=== PATIENT | male | born 1970 | race Caucasian/White ===

== ENCOUNTER 2020-11-11 22:19 | Emergency (ER) | payer BC ==
[~2020-11-11 22:19] MED LIST: Amoxicillin/Clavulanate K 875-125 MG Tab ONE
[2020-11-11] MEDS ORDERED: Diphtheria,Pertussis(Acell),Tetanus Vaccine 0.5 ML SDV IM ONE (22:58)
--- NOTE | 2020-11-12 07:14 | ER ---
HISTORY OF PRESENT ILLNESS: A 50-year-old male here after his dog bit him in the upper lip and just above the upper lip. He states that he usually pets and gives his dog a Lex kiss and while he did this, the dog tonight nipped him in the face. The dog was not provoked and is the patient's own personal dog. There is no concern about rabies. The patient tells me the dog is current on its shots. It is a Basset Hound. The patient states he otherwise is healthy. MEDICATIONS: He is not on any medications. ALLERGIES: HE IS NOT ALLERGIC TO ANY MEDICATIONS. OBJECTIVE: GENERAL APPEARANCE: The patient is awake and alert. No obvious distress. VITAL SIGNS: Reviewed as listed. HEENT: Examining the patient's face reveals 1 vertical laceration, centrally located in the upper lip, which is gaping. It is about 1 cm in length. He has 1 just above the lip that is also about a cm in length that is just through the epidermis. Another small abrasion just above the upper lip and a 2nd laceration on the bottom side of the upper lip on the patient's left side that again would be about another cm in size. DIAGNOSIS: Multiple small lacerations to upper lip area/dog bite. TREATMENT PLAN: Sites were cleansed by nursing staff after which I injected 1% lidocaine with epi locally to anesthetized the lacerations. I then acquired a sterile field and I closed the wound with suturing it using 6-0 Ethilon. It required 3 sutures on the largest 1, 2 on the 1 next to it and 1 to loosely pulled together the laceration that just above the patient's lip area that is the most visible. He tolerated the suturing procedure well. POST CARE INSTRUCTIONS: I will put him on Augmentin for 5 days. A Tdap shot was given to the patient. He is to have the sutures removed next Tuesday if possible and he is to take Tylenol or ibuprofen as needed for pain control. Follow up sooner [email or web address] CRS/MODL /[id number]
== END 2020-11-11 23:15 | disposition home or self-care (01) ==
LOC: LB.ED 22:19
DX: S01.551A Open bite of lip, initial encounter (principal); Z23 Encounter for immunization; W54.0XXA Bitten by dog, initial encounter
CPT/HCPCS: 12011; 90471; 90715; 99283; A9270-GY

== ENCOUNTER 2023-02-10 07:58 | Day surgery (SDC) | payer OTHER ==
[~2023-02-10 07:58] MED LIST changes: -Amoxicillin/Clavulanate K 875-125 MG Tab ONE; +Metoclopramide 10 MG/2 ML SDV IV PRN
[2023-02-10] MEDS: Sodium Chloride 0.9% 1,000 ML IV SCH (08:26)
== END 2023-02-10 11:07 | disposition home or self-care (01) ==
LOC: LB.SDS 07:58
PROVIDERS: ATTEND Surgery
DX: Z12.11 Encounter for screening for malignant neoplasm of colon (principal); D12.5 Benign neoplasm of sigmoid colon; F17.200 Nicotine dependence, unspecified, uncomplicated; Z91.040 Latex allergy status; Z91.018 Allergy to other foods
CPT/HCPCS: 88305; J2704; J7030

== ENCOUNTER 2024-01-19 09:03 | Day surgery (SDC) | payer OTHER ==
[2024-01-19] MEDS: Sodium Chloride 0.9% 1,000 ML IV SCH (09:41)
[2024-01-19] MEDS ORDERED: fentaNYL 100 MCG/2 ML SDV ONE (11:45)
[2024-01-19] MEDS ORDERED: Midazolam 1 MG/ML 2 ML SDV ONE (11:45)
== END 2024-01-19 12:50 | disposition home or self-care (01) ==
LOC: LB.SDS 09:03
PROVIDERS: ATTEND Surgery
DX: Z12.11 Encounter for screening for malignant neoplasm of colon (principal); D12.5 Benign neoplasm of sigmoid colon; Z91.040 Latex allergy status; Z86.010 Personal history of colon polyps
CPT/HCPCS: J2250; J3010; J7030